=== PATIENT | male | born 1980 | race Caucasian/White ===

== ENCOUNTER 2018-04-16 21:49 | Emergency (ER) | payer MEDICAID ==
[2018-04-16] MEDS: FLUORESCEIN STRIP LEFT EYE (23:45)
[2018-04-16] MEDS: TETRACAINE 0.5% 4 ML OPH LEFT EYE (23:45)
== END 2018-04-17 00:08 | disposition home or self-care (01) ==
LOC: FTE 04-17 00:08
DX: T15.92XA Foreign body on external eye, part unspecified, left eye, initial encounter (principal); T15.91XA Foreign body on external eye, part unspecified, right eye, initial encounter; X58.XXXA Exposure to other specified factors, initial encounter; Y92.89 Other specified places as the place of occurrence of the external cause
CPT/HCPCS: 65205; 99283-25